=== PATIENT | female | born 1995 | race Caucasian/White ===

== ENCOUNTER 2017-03-16 21:57 | Emergency (ER) | payer MEDICAID ==
[~2017-03-16] VITALS: Ht 157.5 cm; Wt 80.7 kg
[2017-03-16 21:57] VITALS: BP_SYST 193
--- NOTE | 2017-03-16 23:00 | NUR ---
Note laura in EDM - 03/16/17 at 2300 by OSVALDO Patient to ER bed 6 to saul for evaluation. Side rails up. Report given to ENEDINA BONNER.
--- NOTE | 2017-03-16 23:00 | NUR ---
Patient to ER bed 6 to gown for evaluation. Side rails up. Report given to ENEDINA BONNER.
--- NOTE | 2017-03-16 23:00 | NUR ---
Patient to ER via triage with c/o UTI symptoms x 4 days, and hematuria x 1 day. Patient is awake, alert and oriented in no acute distress. Patient rates pain as 6/10. Patient able to ambulate to room with slow, steady gait without increase in pain/sob with exertion. While patient was in triage, patient gave urine sample which was sent to lab for analysis. Awaiting evaluation by ER MD, will continue to observe and assess.
--- NOTE | 2017-03-16 23:00 | NUR ---
Patient to ER bed 6 to gown for evaluation. Side rails up. Report given to KAILEY MCCONNELL.
[2017-03-16 23:07] LABS: BILIRUBIN,URINE NEGATIVE (NEGATIVE); BLOOD, URINE 3+ (NEGATIVE); CLARITY/URINE CLOUDY (CLEAR); COLOR,URINE ORANGE (YELLOW); GLUCOSE,URINE TRACE (NEGATIVE); KETONES,URINE NEGATIVE (NEGATIVE); LEUKOCYTE ESTERASE ,URINE 2+ (NEGATIVE); NITRITE, URINE POSITIVE (NEGATIVE); PROTEIN URINE 3+ (NEGATIVE)
--- NOTE | 2017-03-16 23:15 | NUR ---
Dr Zamarripa at bedside to evaluate patient.
[2017-03-16 23:31] LABS: BACTERIA,URINE FEW /HPF (None Seen); RBC,URINE >100 /HPF (0-3); WBC,URINE >100 /HPF (0-3)
[2017-03-16 23:32] LABS: MUCUS,URINE None Seen /LPF (None Seen)
[2017-03-16] MEDS ORDERED: CIPROFLOXACIN HCL 500 MG TABLET PO ONE (23:45)
[2017-03-16 23:55] VITALS: BP_SYST 172
--- NOTE | 2017-03-16 23:55 | NUR ---
Patient given written and verbal discharge instructions and verbalizes understanding. ER MD discussed with patient the results and treatment provided. Patient in stable condition. ID arm band removed. Rx of Ciprofloxacin, Ibuprofen, Pyridium given. Patient educated on pain management and to follow up with PMD. Pain Scale 2. Opportunity for questions provided and answered. Patient left ER ambulating with slow, steady gait in no acute distress. No adverse reaction noted to medication. Dr Zamarripa is aware of patient's BP and states it is OK to discharge patient home.
== END 2017-03-16 23:55 | disposition home or self-care (01) ==
LOC: SED 21:57
DX: N39.0 Urinary tract infection, site not specified (principal); R31.9 Hematuria, unspecified
CPT/HCPCS: 81000-TC; 81025; 87086; 99284